=== PATIENT | female | born 1970 | race Caucasian/White ===

== ENCOUNTER → 2018-07-15 09:20 | Outpatient (CLI) | payer BC ==
[2010-10-03 12:06] VITALS: BMI 43.7
== END | disposition home or self-care (01) ==
LOC: D.US 07-13 08:00
DX: R13.10 Dysphagia, unspecified (principal)

== ENCOUNTER 2019-10-29 14:28 | Emergency (ER) | payer BC ==
[~2019-10-29] VITALS: Ht 162.6 cm; Wt 111.4 kg
[2019-10-29 14:47] VITALS: Ht 162.6 cm; Wt 111.4 kg
[2019-10-29] MEDS ORDERED: TALTZ (14:50)
[2019-10-29 17:05] LABS: BASOPHILS 0.4 % (0-2); EOSINOPHILS 3.5 % (0-7); HEMATOCRIT 45.6 % (36.0-48.0); HEMOGLOBIN 14.5 g/dL (12-16); IMMATURE GRANULOCYTES 0.2 % (0-5); LYMPHOCYTES 21.7 % (15-50); MCH 26.3 pg (26.0-34.0); MCHC 31.8 g/dL (31.0-37.0); MCV 82.8 fL (80.0-100.0); MEAN PLATELET VOLUME 9.9 fL (7.4-10.4); NEUTROPHILS 69.2 % (40-80); PLATELET COUNT 340 10x3/uL (130-400); RBC 5.51 10x6/uL (4.00-5.40); RDW 14.3 % (11.5-14.5); WBC 8.4 10x3/uL (4.8-10.8)
[2019-10-29 17:20] LABS: APTT 31.3 SECONDS (22.8-39.4); INR 1.07 (0.85-1.17); PROTIME 13.9 SECONDS (11.6-15.0)
[2019-10-29 17:24] LABS: CALC OSMOLALITY 277 mosm/kg (275-300); CALCIUM 9.5 mg/dL (8.5-10.1); CARBON DIOXIDE 28.6 mmol/L (21.0-32.0); CHLORIDE - SERUM 104 mmol/L (98-107); CREATININE - SERUM 0.8 mg/dL (0.6-1.3); GLUCOSE 103 mg/dL (74-106); POTASSIUM - SERUM 3.8 mmol/L (3.5-5.1); SODIUM 138 mmol/L (136-145); UREA NITROGEN 18 mg/dL (7-18); eGFR NON AFRICAN AMERICAN 81 mL/min (90-120)
[2019-10-29 17:39] LABS: ALBUMIN 3.3 g/dL (3.4-5.0); ALKALINE PHOSPHATASE 124 U/L (30-120); ALT (SGPT) 22 U/L (10-68); BILIRUBIN - TOTAL 0.29 mg/dL (0.2-1.3); CKMB 0.8 U/L (0.0-3.6); CREATINE KINASE 55 UL (21-215); PROTEIN - SERUM 7.8 g/dL (6.4-8.2); THYROID STIMULATING HORMONE 0.74 uIU/mL (0.36-3.74); TROPONIN-I < 0.017 ng/mL (0.000-0.060)
[2019-10-29 18:58] VITALS: BP 136/91
== END 2019-10-29 19:01 | disposition home or self-care (01) ==
LOC: D.ER 14:28
PROVIDERS: Family Medicine
DX: R51 Headache (principal)